=== PATIENT | male | born 1995 | race Asian ===

== ENCOUNTER 2016-11-18 20:43 | Emergency (ER) | payer OTHER, BC ==
[~2016-11-18] VITALS: Ht 182.9 cm; Wt 94.2 kg
[2016-11-18 20:48] VITALS: TEMP 36.8; O2SAT 99; Ht 182.9 cm; Wt 94.2 kg
[2016-11-18] MEDS ORDERED: SODIUM CHLORIDE 0.9% 1000ML 1,000 ML IV STA (20:50)
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
[2016-11-18 21:07] LABS: BASO % 0.1 %; BASO ABS # 0.01 K/uL (0-0.2); COMPLETE YES; EOS % 1.7 %; HEMATOCRIT 45.5 % (42-52); IG% 0.1 %; LYMPH % 48.6 %; LYMPH ABS # 3.36 K/uL (1.2-3.4); MEAN CELL VOLUME 81.8 fL (80-100); MEAN CORPUSCULAR HEMOGLOBIN 28.2 pg (25-34); MEAN CORPUSCULAR HGB CONC 34.5 g/dl (32-36); MEAN PLATELET VOLUME 9.7 fL (7.4-10.4); MONO % 6.1 %; NEUT % 43.4 %; PLATELET COUNT 212 K/uL (130-400); RED BLOOD COUNT 5.56 M/uL (4.7-6.1); WHITE BLOOD COUNT 6.91 K/uL (4.8-10.8)
[2016-11-18 21:13] LABS: ISTAT CREATININE 0.9 mg/dl; ISTAT IONIZED CALCIUM 1.18 mmol/l
[2016-11-18] MEDS ORDERED: OPTIRAY 320 IV PRN (21:30)
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
[2016-11-18 21:34] LABS: BUN/CREATININE RATIO 13.6 (10-20); POTASSIUM 3.7 mmol/L (3.5-5.1)
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
[2016-11-18 21:51] LABS: CALCIUM 9.4 mg/dl (8.5-10.1)
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
[2016-11-18] MEDS ORDERED: KETOROLAC TROMETHAMINE 30 MG/ML VIAL IV STA (22:38)
[2016-11-18] MEDS ORDERED: OXYCODONE IR HOME PACK PO ONE (22:45)
[2016-11-18 22:50] VITALS: BP 146/75; PULSE 76; O2SAT 98
== END 2016-11-18 23:20 | disposition home or self-care (01) ==
LOC: C.EDB 20:45
DX: S09.90XA Unspecified injury of head, initial encounter (principal); S16.1XXA Strain of muscle, fascia and tendon at neck level, initial encounter; S30.1XXA Contusion of abdominal wall, initial encounter; S40.022A Contusion of left upper arm, initial encounter; S93.402A Sprain of unspecified ligament of left ankle, initial encounter; T14.8 Other injury of unspecified body region; V09.20XA Pedestrian injured in traffic accident involving unspecified motor vehicles, initial encounter; F32.9 Major depressive disorder, single episode, unspecified

== ENCOUNTER 2016-11-23 22:41 | Emergency (ER) | payer BC, OTHER ==
[~2016-11-23] VITALS: Ht 182.9 cm; Wt 91.6 kg
[2016-11-23 22:45] VITALS: TEMP 37; Ht 182.9 cm; Wt 91.6 kg
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
[2016-11-24 01:03] VITALS: BP 130/84; PULSE 81; O2SAT 98
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
== END 2016-11-24 01:04 | disposition home or self-care (01) ==
LOC: C.EDB 22:42
DX: R09.89 Other specified symptoms and signs involving the circulatory and respiratory systems (principal); Z83.3 Family history of diabetes mellitus; Z82.49 Family history of ischemic heart disease and other diseases of the circulatory system